=== PATIENT | female | born 1970 | race African-American/Black ===

== ENCOUNTER 2021-07-22 18:03 | Inpatient (IN) ==
[2021-07-22 19:13] LABS: Basophils % 0.2 % (0.0-0.8); Eosinophils % 0.1 % (0.00-10.9); Hematocrit 29.4 VOL% (35.7-47.0); Hemoglobin 9.1 GM/DL (12.0-16.0); Immature Granulocytes % 0.5 %; Immature Granulocytes Absolute 0.05 #; Lymphocytes # 1.1 10*3/uL (1.4-4.0); Lymphocytes % 10.3 % (21.3-54.2); Mean Corpuscular Volume 85.2 FL (87-102); Mean Platelet Volume 9.3 FL (9.6-12.0); Monocytes % 15.8 % (1.7-12.7); Neutrophils % 73.1 % (38.7-73.9); Platelet Count 255 T/CUMM (130-400); Red Blood Count 3.45 MC/CUMM (3.8-5.5); Red Cell Distribution Width 14.8 % (9.3-17.3); White Blood Count 10.7 T/CUMM (4-12)
[2021-07-22 19:25] LABS: Albumin 3.7 G/DL (3.4-5.0); Bilirubin,Total 1.8 MG/DL (0.20-1.00); Calcium 8.9 MG/DL (8.5-10.1); Osmolality,Calculated 276.5 MOS/KG (273-304); Potassium 3.1 MMOL/L (3.5-5.1); Total Protein 8.8 G/DL (6.4-8.2)
[2021-07-22] MEDS ORDERED: KETOROLAC 30 MG/1 ML VIAL IV STA (20:31)
[2021-07-22 21:16] LABS: Band Neutrophils 1 % (0-10); Lymphocytes 10 % (20-55); Segmented Neutrophils 76 % (50-85); Total Cells Counted 100
[2021-07-22 21:17] LABS: Hypochromasia 1+; Platelet Estimate Normal
[2021-07-22] MEDS ORDERED: carvediloL 3.125 MG TABLET PO STA (21:22)
[2021-07-22] MEDS ORDERED: MORPHINE 2 MG/1 ML SYRINGE IV PRN (21:59)
[2021-07-22] MEDS ORDERED: hydrALAZINE 20 MG/1 ML VIAL IV PRN (21:59)
[2021-07-22] MEDS ORDERED: ACETAMINOPHEN 325 MG TABLET PO PRN (21:59)
[2021-07-22] MEDS ORDERED: GLUCAGON 1 MG VIAL IM PRN (21:59)
[2021-07-22] MEDS ORDERED: ZALEPLON 5 MG CAPSULE PO PRN (21:59)
[2021-07-22] MEDS ORDERED: ONDANSETRON 4 MG/2 ML VIAL IV PRN (21:59)
[2021-07-22] MEDS ORDERED: NICOTINE 21 MG/24 HR PATCH TRANSDERM PRN (21:59)
[2021-07-22] MEDS ORDERED: diphenhydrAMINE CAP 25 MG CAPSULE PO PRN (21:59)
[2021-07-22] MEDS ORDERED: guaiFENesin/DM ER 600-30 MG TABLET PO PRN (21:59)
[2021-07-22] MEDS ORDERED: ALBUTEROL/IPRATROPIUM 3 ML NEB RESP TX PRN (21:59)
[2021-07-22] MEDS ORDERED: DEXTROSE 50% 25 GM/50 ML SYRINGE IV PRN (22:09)
[2021-07-23 05:33] LABS: White Blood Count 10.4 T/CUMM (4-12)
[2021-07-23 05:34] LABS: Basophils % 0.2 % (0.0-0.8); Hematocrit 27.5 VOL% (35.7-47.0); Hemoglobin 8.6 GM/DL (12.0-16.0); Immature Granulocytes % 0.6 %; Immature Granulocytes Absolute 0.06 #; Lymphocytes # 0.8 10*3/uL (1.4-4.0); Lymphocytes % 8.1 % (21.3-54.2); Mean Corpuscular HGB Conc 31.3 GM/DL (32-36); Mean Corpuscular Volume 86.8 FL (87-102); Mean Platelet Volume 9.7 FL (9.6-12.0); Monocytes % 11.4 % (1.7-12.7); Neutrophils % 79.7 % (38.7-73.9); Platelet Count 250 T/CUMM (130-400); Red Blood Count 3.17 MC/CUMM (3.8-5.5)
[2021-07-23 05:49] LABS: Calcium 8.7 MG/DL (8.5-10.1); Potassium 3.3 MMOL/L (3.5-5.1)
[2021-07-23] MEDS: PANTOPRAZOLE 40 MG TABLET PO SCH (08:29)
[2021-07-23] MEDS: carvediloL 3.125 MG TABLET PO SCH ×2 (09:33→20:59)
[2021-07-24 04:25] LABS: Basophils % 0.1 % (0.0-0.8); Eosinophils % 0.1 % (0.00-10.9); Hematocrit 24.2 VOL% (35.7-47.0); Hemoglobin 7.6 GM/DL (12.0-16.0); Immature Granulocytes % 0.5 %; Immature Granulocytes Absolute 0.05 #; Lymphocytes % 10.7 % (21.3-54.2); Mean Corpuscular HGB Conc 31.4 GM/DL (32-36); Mean Corpuscular Volume 86.4 FL (87-102); Mean Platelet Volume 9.5 FL (9.6-12.0); Monocytes % 15.8 % (1.7-12.7); Neutrophils % 72.8 % (38.7-73.9); Platelet Count 229 T/CUMM (130-400); Red Cell Distribution Width 14.7 % (9.3-17.3); White Blood Count 9.1 T/CUMM (4-12)
[2021-07-24 04:37] LABS: Calcium 8.6 MG/DL (8.5-10.1); Osmolality,Calculated 267.2 MOS/KG (273-304); Potassium 3.5 MMOL/L (3.5-5.1)
[2021-07-24 05:02] LABS: Band Neutrophils 1 % (0-10); Eosinophils 1 % (0-10); Hypochromasia 2+; Lymphocytes 11 % (20-55); Platelet Estimate Adequate; Segmented Neutrophils 70 % (50-85); Total Cells Counted 100
[2021-07-24] MEDS: PANTOPRAZOLE 40 MG TABLET PO SCH (09:54)
[2021-07-24] MEDS: carvediloL 3.125 MG TABLET PO SCH ×2 (09:54→21:43)
[2021-07-24] MEDS ORDERED: POTASSIUM CHLORIDE RIDER 10 MEQ/100 ML PREMIX IV PRN (19:23)
[2021-07-24] MEDS ORDERED: diphenhydrAMINE CAP 25 MG CAPSULE PO ONE (19:23)
[2021-07-24] MEDS ORDERED: DIAZEPAM 5 MG TABLET PO ONE (19:23)
[2021-07-24] MEDS ORDERED: MAGNESIUM SULF RIDER 2 GM/50 ML PREMIX IV PRN (19:23)
[2021-07-25 05:36] LABS: Basophils % 0.2 % (0.0-0.8); Eosinophils % 0.1 % (0.00-10.9); Hematocrit 26.1 VOL% (35.7-47.0); Hemoglobin 8.1 GM/DL (12.0-16.0); Immature Granulocytes % 0.7 %; Immature Granulocytes Absolute 0.06 #; Lymphocytes # 0.9 10*3/uL (1.4-4.0); Lymphocytes % 10.7 % (21.3-54.2); Mean Corpuscular Volume 85.6 FL (87-102); Mean Platelet Volume 9.6 FL (9.6-12.0); Monocytes % 14.5 % (1.7-12.7); Neutrophils % 73.8 % (38.7-73.9); Platelet Count 287 T/CUMM (130-400); Red Blood Count 3.05 MC/CUMM (3.8-5.5); Red Cell Distribution Width 14.6 % (9.3-17.3); White Blood Count 8.5 T/CUMM (4-12)
[2021-07-25 06:06] LABS: Calcium 8.8 MG/DL (8.5-10.1); Potassium 3.5 MMOL/L (3.5-5.1)
[2021-07-25] MEDS ORDERED: SODIUM CHLORIDE 0.9% 1,000 ML IV SCH (07:00)
[2021-07-25] MEDS ORDERED: TRIAMCINOLONE ACETONIDE 40 MG/1 ML VIAL MISC INJ ONE (07:00)
[2021-07-25] MEDS ORDERED: DIAZEPAM 5 MG TABLET PO ONE (08:00)
[2021-07-25] MEDS ORDERED: diphenhydrAMINE CAP 25 MG CAPSULE PO ONE (08:00)
[2021-07-25] MEDS: PANTOPRAZOLE 40 MG TABLET PO SCH (08:06)
[2021-07-25] MEDS: carvediloL 3.125 MG TABLET PO SCH (08:06)
[2021-07-25] MEDS ORDERED: fentaNYL 100 MCG/2 ML VIAL ONE (08:13)
[2021-07-25] MEDS ORDERED: MIDAZOLAM 2 MG/2 ML VIAL ONE (08:13)
[2021-07-25] MEDS ORDERED: GLUCAGON 1 MG VIAL IM PRN (08:37)
[2021-07-25] MEDS ORDERED: DEXTROSE 50% 25 GM/50 ML VIAL IV PRN (08:37)
[2021-07-25] MEDS ORDERED: COLCHICINE 0.6 MG CAPSULE PO SCH (09:00)
[2021-07-25] MEDS ORDERED: IBUPROFEN 400 MG TABLET PO SCH (09:00)
[2021-07-25] MEDS ORDERED: predniSONE 50 MG TABLET PO SCH (09:00)
[2021-07-25 12:58] VITALS: BP 103/65
== END 2021-07-25 14:53 | disposition home or self-care (01) | DRG 315 ==
LOC: N.ED 18:03 → SUATTDRO 22:00 → N.EDINP 22:00 → N.TELES 07-23 00:42
PROVIDERS: ADMIT Emergency Medicine; ATTEND Internal Medicine Geriatric Medicine